=== PATIENT | male | born 2005 | race Hispanic/Latino ===

== ENCOUNTER 2024-11-26 22:01 | Emergency (ER) | payer SELFPAY ==
[~2024-11-26] VITALS: Ht 167.6 cm; Wt 136.1 kg
[2024-11-26 22:03] VITALS: PULSE 90; RESP 20; TEMP 102.5
[2024-11-26] MEDS ORDERED: DIPHENHYDRAMINE25 M2 PO (22:56)
[2024-11-26] MEDS ORDERED: AZITHROMYCIN250 MG PO (22:56)
[2024-11-26] MEDS ORDERED: TYLENOL325 MG PO (22:56)
[2024-11-26] MEDS: CIPROFLOXACIN 500 MG TAB PO ONE (22:58)
[2024-11-26] MEDS: IBUPROFEN 200 MG TAB PO ONE (22:59)
[2024-11-26] MEDS: ACETAMINOPHEN 325 MG TAB PO ONE (22:59)
[2024-11-26 23:06] VITALS: BP 158/85; PULSE 93; RESP 19; TEMP 99.7; O2SAT 96
== END 2024-11-26 23:10 | disposition home or self-care (01) ==
LOC: FSED 22:44
DX: R50.9 Fever, unspecified (principal); J40 Bronchitis, not specified as acute or chronic; J02.9 Acute pharyngitis, unspecified; B34.9 Viral infection, unspecified; R05.9 Cough, unspecified; Z11.52 Encounter for screening for COVID-19
CPT/HCPCS: 0223U; 83518 ×2; 87400; 99284